=== PATIENT | female | born 1945 | race Asian ===

== ENCOUNTER 2023-02-01 18:36 | Inpatient (IN) | payer OTHER ==
[~2023-02-01] VITALS: Ht 160 cm; Wt 59.0 kg
[2023-02-01 19:29] VITALS: BP 169/95; PULSE 93; RESP 18; TEMP 98.2; O2SAT 96
[2023-02-01 21:05] LABS: BASOPHILS % (AUTO) 0.7 % (0.0-2.0); EOSINOPHILS # (AUTO) 0.1 K/uL (0-0.4); EOSINOPHILS % (AUTO) 1.4 % (0.0-4.0); HEMATOCRIT 38.4 % (36-48); HEMOGLOBIN 12.6 g/dL (12.0-16.0); LYMPHOCYTES # (AUTO) 1.3 K/uL (2.5-16.5); LYMPHOCYTES % (AUTO) 19.3 % (20.5-51.1); MEAN CORPUSCULAR HEMOGLOBIN 30 pg (27-31); MEAN CORPUSCULAR HGB CONC 33 g/dL (33-37); MONOCYTES # (AUTO) 0.4 K/uL (0.8-1.0); MONOCYTES % (AUTO) 6.2 % (1.7-9.3); NEUTROPHILS # (AUTO) 4.9 K/uL (1.8-7.7); NEUTROPHILS % (AUTO) 72.4 % (42.2-75.2); PLATELET COUNT (AUTO) 212 K/uL (140-450); RED BLOOD CELL COUNT(AUTO) 4.18 MIL/uL (4.20-5.40); RED CELL DISTRIBUTION WIDTH 13.2 % (11.6-13.7); WHITE BLOOD COUNT (AUTO) 6.7 K/uL (4.8-10.8)
[2023-02-01 21:18] LABS: ANION GAP 13.6 (8-16); CALCIUM 9.4 mg/dL (8.5-10.1); CARBON DIOXIDE 29.5 mmol/L (21-32); CHLORIDE 104 mmol/L (98-107); CREATININE 0.9 mg/dL (0.6-1.3); GLUCOSE 128 mg/dL (74-106); POTASSIUM 4.1 mmol/L (3.5-5.1); SODIUM SERUM 143 mmol/L (136-145); UREA NITROGEN, BLOOD 17 mg/dL (7-18)
[2023-02-01 21:21] LABS: INR 1.11 (0.8-1.2); PARTIAL THROMBOPLASTIN TIME 24.3 secs (22-35.6); PROTHROMBIN TIME 11.6 secs (10.8-13.4)
[2023-02-01 21:27] LABS: ALANINE AMINOTRANSFERASE 36 U/L (12-78); ALBUMIN 3.7 g/dL (3.4-5.0); ALKALINE PHOSPHATASE 108 U/L (50-136); ASPARTATE AMINOTRANSFERASE 27 U/L (15-37); BILIRUBIN,DIRECT 0.1 mg/dL (0.0-0.3); TOTAL BILIRUBIN 0.3 mg/dL (0.0-1.0); TOTAL PROTEIN, SERUM 8.2 g/dL (6.4-8.2)
[2023-02-02] MEDS ORDERED: MORPHINE SULFATE 2 MG/ML SYR IVP PRN
[2023-02-02] MEDS ORDERED: ONDANSETRON 4 MG/2 ML VIAL IVP PRN
[2023-02-02 01:58] LABS: APPEARANCE,URINE CLEAR (CLEAR); BILIRUBIN,URINE NEGATIVE (NEGATIVE); BLOOD, URINE 2+ (NEGATIVE); COLOR,URINE YELLOW (YELLOW); LEUKOCYTE ESTERASE ,URINE NEGATIVE (NEGATIVE); NITRITE, URINE NEGATIVE (NEGATIVE); PROTEIN,URINE NEGATIVE (NEGATIVE); UGLUCOSE NEGATIVE (NEGATIVE); UROBILINOGEN,URINE 0.2 EU/dL (0.2 - 1)
[2023-02-02 02:03] LABS: BACTERIA,URINE None Seen /HPF (None Seen); MUCUS,URINE 1+ /LPF (None Seen); SQUAMOUS EPITHELIAL CELL,UR 4-10 (MOD) /LPF (0-3 (FEW)); TRICHOMONAS,URINE None Seen /HPF (None Seen); WBC,URINE 0-5 /HPF (0-5); YEAST,URINE None Seen /HPF (None Seen)
[2023-02-02] MEDS ORDERED: ATOR10TA PO (03:35)
[2023-02-02] MEDS: ACETAMINOPHEN 325 MG TAB PO PRN (05:42)
[2023-02-02 07:39] LABS: BASOPHILS % (AUTO) 0.5 % (0.0-2.0); EOSINOPHILS % (AUTO) 0.6 % (0.0-4.0); HEMATOCRIT 35.8 % (36-48); HEMOGLOBIN 11.7 g/dL (12.0-16.0); LYMPHOCYTES # (AUTO) 1.3 K/uL (2.5-16.5); LYMPHOCYTES % (AUTO) 21.5 % (20.5-51.1); MEAN CORPUSCULAR HEMOGLOBIN 30 pg (27-31); MEAN CORPUSCULAR HGB CONC 33 g/dL (33-37); MEAN CORPUSCULAR VOLUME 92.3 fL (80-94); MONOCYTES # (AUTO) 0.5 K/uL (0.8-1.0); MONOCYTES % (AUTO) 7.8 % (1.7-9.3); NEUTROPHILS # (AUTO) 4.1 K/uL (1.8-7.7); NEUTROPHILS % (AUTO) 69.6 % (42.2-75.2); PLATELET COUNT (AUTO) 195 K/uL (140-450); RED BLOOD CELL COUNT(AUTO) 3.88 MIL/uL (4.20-5.40); WHITE BLOOD COUNT (AUTO) 5.9 K/uL (4.8-10.8)
[2023-02-02 07:52] LABS: ALANINE AMINOTRANSFERASE 31 U/L (12-78); ALBUMIN 3.3 g/dL (3.4-5.0); ALKALINE PHOSPHATASE 95 U/L (50-136); ANION GAP 13.9 (8-16); ASPARTATE AMINOTRANSFERASE 23 U/L (15-37); CALCIUM 8.9 mg/dL (8.5-10.1); CHLORIDE 105 mmol/L (98-107); CREATININE 0.8 mg/dL (0.6-1.3); GLUCOSE 125 mg/dL (74-106); MAGNESIUM 2.1 mg/dL (1.8-2.4); POTASSIUM 3.9 mmol/L (3.5-5.1); SODIUM SERUM 141 mmol/L (136-145); TOTAL BILIRUBIN 0.4 mg/dL (0.0-1.0); TOTAL PROTEIN, SERUM 7.3 g/dL (6.4-8.2); UREA NITROGEN, BLOOD 13 mg/dL (7-18)
[2023-02-02] MEDS: ASPIRIN 325 MG TABEC PO SCH (09:57)
[2023-02-02] MEDS ORDERED: AZITHROMYCIN 500 MG INJ VIAL IV ONE (14:34)
[2023-02-02] MEDS: AZITHROMYCIN 500 MG in DEXTROSE 5% 250 ML IV SCH (14:37)
[2023-02-03] MEDS: ASPIRIN 325 MG TABEC PO SCH (09:55)
[2023-02-03] MEDS ORDERED: AZITHROMYCIN 500 MG INJ VIAL IV ONE (14:02)
[2023-02-03] MEDS: AZITHROMYCIN 500 MG in DEXTROSE 5% 250 ML IV SCH (14:11)
[2023-02-03] MEDS: ACETAMINOPHEN 325 MG TAB PO PRN (16:33)
[2023-02-03 20:30] VITALS: BP 164/80; PULSE 85; PULSE 90; RESP 18; TEMP 98.3; O2SAT 98
[2023-02-04] VITALS (8 sets, daily range): BP systolic 141–160; BP diastolic 71–81; PULSE 84–100; RESP 18–20; TEMP 96.9–98; O2SAT 94–97
[2023-02-04] MEDS: ACETAMINOPHEN 325 MG TAB PO PRN (03:57)
[2023-02-04] MEDS: ASPIRIN 325 MG TABEC PO SCH (08:43)
[2023-02-04] MEDS ORDERED: ATORVASTATIN 20 MG TAB PO SCH (14:35)
[2023-02-04] MEDS ORDERED: CLOPIDOGREL 75 MG TAB PO SCH (14:40)
[2023-02-04] MEDS: LOSARTAN 25 MG TAB PO SCH ×2 (15:09→20:34)
[2023-02-04] MEDS: AZITHROMYCIN 500 MG in DEXTROSE 5% 250 ML IV SCH (15:35)
[2023-02-04] MEDS: ATORVASTATIN 20 MG TAB PO SCH (15:43)
[2023-02-05] VITALS: BP 117/79; PULSE 80; PULSE 86; RESP 18; TEMP 97.1; O2SAT 91
[2023-02-05 04:00] VITALS: BP 137/80; PULSE 76; PULSE 77; RESP 20; TEMP 98; O2SAT 99
[2023-02-05] MEDS: ACETAMINOPHEN 325 MG TAB PO PRN (05:53)
[2023-02-05] MEDS ORDERED: ECOTRIN 81 MG TABEC PO SCH (09:00)
[2023-02-05] MEDS ORDERED: CLOPIDOGREL 75 MG TAB PO SCH (09:00)
[2023-02-05] MEDS: ATORVASTATIN 20 MG TAB PO SCH (09:23)
[2023-02-05] MEDS: LOSARTAN 25 MG TAB PO SCH (09:23)
[2023-02-05] MEDS: AZITHROMYCIN 500 MG in DEXTROSE 5% 250 ML IV SCH (14:00)
[2023-02-05] MEDS ORDERED: LOSA-269 PO (14:32)
[2023-02-05] MEDS ORDERED: ASPI-1856 PO (14:32)
[2023-02-05] MEDS ORDERED: AZIT250T3 PO (14:32)
[2023-02-05 15:00] VITALS: BP 137/80; PULSE 76; RESP 20; TEMP 98
== END 2023-02-05 15:50 | disposition home or self-care (01) | DRG 45 ==
LOC: MED 18:36 → MTU 02-02 00:05 → OBSVTOIN 02-02 00:05 → MTU 02-02 00:05
PROVIDERS: ADMIT Hospitalist; ATTEND Hospitalist
DX: I63.9 Cerebral infarction, unspecified (principal); J18.9 Pneumonia, unspecified organism; E11.9 Type 2 diabetes mellitus without complications; E78.5 Hyperlipidemia, unspecified; R53.1 Weakness; I16.0 Hypertensive urgency
CPT/HCPCS: 36415; 70450; 71045; 80048; 80053; 80076; 81001; 82948; 83735; 84484; 85025; 85610; 85730; 86886; 86900; 86901; 87081; 93005; 96374; 99291; J0456; J2270; J7060; Q0092